=== PATIENT | female | born 1940 | race Caucasian/White ===

== ENCOUNTER 2016-09-27 08:20 | Outpatient (CLI) | payer MEDICARE ==
--- NOTE | 2016-09-27 11:12 | Mammography Report ---
BILATERAL MAMMOGRAM: Compared to 10/08/13 and 06/29/12. CAD study utilized. FINDINGS: Predominance of adipose tissue bilaterally. New circumscribed density measuring 0.9 cm mid right breast level of areola seen on MLO view. Increase in size of the circumscribed density noted posteriorly at mid breast on MLO view. Previously measured 0.5 cm. Increase in size of second density at the upper mid left breast. Measures 0.8 cm in present study and measured 0.67 on previous study. Benign calcifications and benign axillary nodes. IMPRESSION: New density right breast. Increase in size of densities left breast compared to previous study. Recommend spot mag and sonographic examination. BI-RADS CATEGORY: 0 = Needs additional imaging evaluation ACR BI-RADS MAMMOGRAPHIC CODES: 0 = Needs additional imaging evaluation; 1 = Negative; 2 = Benign; 3 = Probably benign; 4 = Suspicious; 5 = Malignant; 6 = Known biopsy-proven malignancy COMMENT: 1. Dense breast tissue, i.e., adenosis, fibrocystic changes, etc., may obscure an underlying neoplasm. 2. Approximately 10% of cancers are not detected with mammography. 3. A negative mammography report should not delay biopsy if a clinically suspicious mass is present. COMMENT: Patient follow-up letters are generated in [employer].
== END 2016-09-27 08:21 | disposition home or self-care (01) ==
LOC: MAMMO 08:20
PROVIDERS: ATTEND Internal Medicine
DX: Z12.31 Encounter for screening mammogram for malignant neoplasm of breast (principal)
CPT/HCPCS: 77067; G0202

== ENCOUNTER 2016-10-14 10:16 | Outpatient (CLI) | payer MEDICARE ==
--- NOTE | 2016-10-16 10:40 | Mammography Report ---
BILATERAL DIAGNOSTIC MAMMOGRAM AND TARGETED LEFT BREAST ULTRASOUND. HISTORY: Recall for bilateral asymmetries. FINDINGS: A spot compression image of the area of parenchymal asymmetry in the right breast demonstrates complete effacement with no evidence of an underlying mass. Similarly, the 90 degree lateral medial view demonstrates no focal findings. Spot compression images of the left breast confirm two small rounded parenchymal densities at approximate 2:00 to 2:30 position. There is no architectural distortion. Sonographic evaluation of the area of interest demonstrates a 6 x 5 x 3 mm ovoid sonolucency with circumscribed margins and no acoustic shadowing. Also at the 2:00 position there is a 4 x 7 mm elongated sonolucency with no acoustic shadowing or other suspicious features. No solid lesions are identified. IMPRESSION: 2 cysts are identified in the left breast corresponding to the mammographic densities. No suspicious findings are seen on the right. BI-RADS CATEGORY: 2 = Benign ACR BI-RADS MAMMOGRAPHIC CODES: 0 = Needs additional imaging evaluation; 1 = Negative; 2 = Benign; 3 = Probably benign; 4 = Suspicious; 5 = Malignant; 6 = Known biopsy-proven malignancy COMMENT: 1. Dense breast tissue, i.e., adenosis, fibrocystic changes, etc., may obscure an underlying neoplasm. 2. Approximately 10% of cancers are not detected with mammography. 3. A negative mammography report should not delay biopsy if a clinically suspicious mass is present. RECOMMENDATION: Annual screening. COMMENT: Patient follow-up letters are generated by [employer].
== END 2016-10-14 10:17 | disposition home or self-care (01) ==
LOC: MAMMO 10:16
PROVIDERS: ATTEND Internal Medicine
DX: R92.2 Inconclusive mammogram (principal)
CPT/HCPCS: 76642; G0204; 77066

== ENCOUNTER 2016-11-05 10:05 | Outpatient (CLI) | payer MEDICARE ==
--- NOTE | 2016-11-05 13:43 | Cat Scan Report ---
CT chest without contrast: Transverse images are obtained through the chest into the upper abdomen. Coronal and sagittal 2-D reformatted images included. There is no axillary, hilar, or mediastinal adenopathy identified. There is mild aortic atherosclerosis. No aneurysm identified. Calcification present in the main left coronary artery. In the upper lobes there is significant thickening of the interstitium anteriorly at the periphery. The increased interstitial markings are also present throughout the lingula segment of the left upper lobe as well as both lower lobes and right middle lobe. Numerous small peripheral blebs are identified posteriorly at both lung bases. There no definable infiltrates or nodules. No rib fractures or destructive bone lesions identified. Sections carried into the upper abdomen demonstrates gallbladder calculi. Impressions: 1. Chronic lung disease. 2. Cholelithiasis.
== END 2016-11-05 10:06 | disposition home or self-care (01) ==
LOC: CT 10:05
PROVIDERS: ATTEND Internal Medicine
DX: J98.4 Other disorders of lung (principal); I25.10 Atherosclerotic heart disease of native coronary artery without angina pectoris; I70.0 Atherosclerosis of aorta; K80.20 Calculus of gallbladder without cholecystitis without obstruction
CPT/HCPCS: 71250